=== PATIENT | male | born 1980 | race Caucasian/White ===

== ENCOUNTER 2025-09-05 14:08 | Emergency (ER) | payer OTHER ==
[~2025-09-05] VITALS: Ht 170.2 cm; Wt 84.0 kg
[2025-09-05] MEDS ORDERED: DIPHENOXYLATE/ATROPINE 1 EA TAB PO ONE (14:30)
[2025-09-05] MEDS ORDERED: ONDANSETRON 4 MG TAB ODT SL ONE (14:30)
[2025-09-05] MEDS ORDERED: LOMOTIL TABLET1 EACH PO (14:43)
[2025-09-05] MEDS ORDERED: ONDANSETRON ODT8 MG PO (14:43)
[2025-09-05 14:50] VITALS: BP 113/78
--- OUTSIDE RECORDS SUMMARY | 2025-09-05 15:05 | XMS ---
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 DANIELE Munoz [facility]: [facility] \\F\\ <UNAVAIL> PHONE: [phone] Mary Jo has no Care Guidelines for this patient. E.DReyna VISIT COUNT (12 MO.) [address] [place] [address] Anthony TOTAL 7 NOTE: Visits indicate total known visits. ED/UCC VISIT TRACKING (12 MO.) 09/05/2025 14:09 [facility] [place] TYPE: Emergency COMPLAINT: - COLD SYMPTOMS 01/24/2025 10:09 [facility] [place] TYPE: Emergency DIAGNOSES: - Encounter for issue of repeat prescription - Essential (primary) hypertension - med refill - Medication Refill 01/14/2025 16:45 [facility] [place] TYPE: Emergency DIAGNOSES: - Epididymitis - Unilateral inguinal hernia, without obstruction or gangrene, not specified as recurrent - "hernia" - Testicle Pain 12/12/2024 06:02 [facility] [place] TYPE: Emergency DIAGNOSES: - Noninfective gastroenteritis and colitis, unspecified - Diarrhea - M2 - Nausea - Vomiting 10/28/2024 00:22 [facility] [place] TYPE: Emergency DIAGNOSES: - Nicotine dependence, unspecified, uncomplicated - Other stimulant abuse, uncomplicated - Pain in right shoulder - m71 09/30/2024 11:43 [facility] [place] TYPE: Emergency DIAGNOSES: - Hand Pain - L sided hand and arm swelling and pain, fall - L sided hand and arm swelling, fall 09/13/2024 08:23 [facility] [place] TYPE: Emergency DIAGNOSES: - Bronchitis, not specified as acute or chronic - Other specified cough - Shortness of Breath - SOB INPATIENT VISIT TRACKING (12 MO.) 09/30/2024 11:43 [facility] [place] TYPE: General Medicine DIAGNOSES: - Cellulitis of left upper limb - Cutaneous abscess of left hand - Hand Pain [email or web address]
== END 2025-09-05 14:49 | disposition home or self-care (01) ==
LOC: ED 14:08
DX: R19.7 Diarrhea, unspecified (principal); J45.909 Unspecified asthma, uncomplicated; Z88.8 Allergy status to other drugs, medicaments and biological substances
CPT/HCPCS: 99283; A9270